=== PATIENT | male | born 1950 | race Caucasian/White ===

== ENCOUNTER 2017-08-14 13:01 | Emergency (ER) | payer MEDICARE ==
[~2017-08-14 13:01] MED LIST: BACT800T5 PO; CIAL5TAB PO; HYDR-2768 PO; LANSO15 PO; LISI-363 PO; LOVA40TA PO; METO25 PO
[2017-08-14 13:03] VITALS: BP 193/90; PULSE 82; RESP 16; TEMP 98.4; O2SAT 96
[2017-08-14] MEDS ORDERED: LOVA40TA PO (14:34)
[2017-08-14] MEDS ORDERED: LISI-515 PO (14:34)
[2017-08-14] MEDS ORDERED: CIAL5TAB PO (14:34)
[2017-08-14] MEDS ORDERED: PREV15CA20 PO (14:34)
[2017-08-14] MEDS ORDERED: METO25TA3 PO (14:34)
[2017-08-14] MEDS ORDERED: HYDR25TA5 PO (14:34)
--- NOTE | 2017-08-14 14:56 | PD ---
HPI Chief Complaint: Hip Injury Time Seen by Provider: 14:48 Travel History International Travel<30 days: No Contact w/Intl Traveler<30days: No Traveled to known affect area: No History of Present Illness HPI 66-year-old male presents for evaluation of bilateral right hip/thigh pain. He reports that 2 weeks ago a fence fell down. He was picking up with the sharp pain in the lateral right hip and thigh. Pain is sharp, worse with movement, specifically walking and flexion of the right hip. He was seen at an urgent care center on August 09 and he was prescribed diclofenac and prednisone. The pain has persisted which prompted evaluation. Denies any numbness, tingling, weakness. He has no other complaints at this time. PFSH Past Medical History Cancer: No Cardiovascular Problems: Yes Diabetes: Yes Patient Takes Glucophage: Yes Endocrine: No Gastrointestinal Disorders: Yes (PREVENTION OF REOCCURENCE OF GERD) Genitourinary: No Hepatitis: No Hiatal Hernia: No Hypertension: Yes Immune Disorder: No Medical other: Yes (ELEVATED CHOLESTEROL) Musculoskeletal: No Neurologic: No Psychiatric: No Reproductive: No Respiratory: No Thyroid Disease: No Past Surgical History Abdominal Surgery: Yes (CHOLECYSTECTOMY, APPENDECTOMY) AICD: No Cardiac Surgery: No Ear Surgery: No Endocrine Surgery: No Eye Surgery: No Genitourinary Surgery: No Gynecologic Surgery: No Joint Replacement: No Neurologic Surgery: No Oral Surgery: No Pacemaker: No Thoracic Surgery: No Other Surgery: Yes Social History Alcohol Use: No Tobacco Use: No Substance Use: No Allergies-Medications (Allergen,Severity, Reaction): Coded Allergies: *MDRO Multi-Drug Resistant Organism (Verified Adverse Reaction, Unknown, ) 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 Reported Meds & Prescriptions Reported Meds & Active Scripts Active Tylenol-Codeine #3 (Acetaminophen-Codeine) 300-30 mg Tab 1 Tab PO Q4H PRN Reported Cialis (Tadalafil) 5 Mg Tab 5 Mg PO DAILY Do not exceed 1 dose/day. Metoprolol Tartrate 25 Mg Tab 25 Mg PO BID Lovastatin 40 Mg Tab 40 Mg PO HS Lisinopril 20 Mg Tab 20 Mg PO DAILY Prevacid (Lansoprazole) 15 Mg Capdr 15 Mg PO DAILY Hydrochlorothiazide 25 Mg Tab 25 Mg PO DAILY Review of Systems Except as stated in HPI: all other systems reviewed are Neg Physical Exam Narrative GENERAL: Well-developed well-nourished male in no acute distress. He is ambulatory in the ED. SKIN: Warm and dry. CARDIOVASCULAR: Regular rate and rhythm. No murmur appreciated. RESPIRATORY: No accessory muscle use. Clear to auscultation. Breath sounds equal bilaterally. GASTROINTESTINAL: Abdomen soft, non-tender, nondistended. Hepatic and splenic margins not palpable. MUSCULOSKELETAL: No obvious deformities. There is no reproducible tenderness to palpation to the hips, pelvis, thighs. He has pain with abduction and and flexion of the right hip. NEUROLOGICAL: Awake and alert. No obvious cranial nerve deficits. Motor grossly within normal limits. Normal speech. Data Data Last Documented VS Vital Signs Date Time Temp Pulse Resp B/P (MAP) Pulse Ox O2 Delivery O2 Flow Rate FiO2 08/14/17 13:03 98.4 82 16 193/90 (124) 96 Orders Orders Hip, Uni(Ap&Lat) W Ap Pelvis (08/14/17 ) [facility] Medical Decision Making Medical Screen Exam Complete: Yes Emergency Medical Condition: Yes Medical Record Reviewed: Yes Differential Diagnosis Hip strain, iliotibial syndrome, avulsion fracture Narrative Course X-ray imaging of the pelvis and hip performed in triage revealed no acute abnormalities, some degenerative findings. His examination is consistent with a right hip strain. Recommended discontinuation of the prednisone. He'll be given Tylenol with codeine for breakthrough pain. He was noted to be hypertensive, he has a history of hypertension. Recommended keeping a journal of his blood pressure readings and the follow up with primary care physician. Diagnosis Primary Impression: Strain of right hip Qualified Codes: S76.011A - Strain of muscle, fascia and tendon of right hip, initial encounter Departure Forms: Tests/Procedures, Work Release Enter return to work date: Aug 17, 2017 Additional Instructions: Monitor your blood pressure on a regular basis. Quit taking prednisone. Continue diclofenac with meals. Do not codeine for breakthrough pain. Do not drive or drink alcohol when taking this medication. Follow-up with primary care physician. Return for any emergent medical conditions. Med/Other Pt SpecificInfo: Prescription(s) given Scripts Acetaminophen-Codeine (Tylenol-Codeine #3) 300-30 mg Tab 1 TAB PO Q4H Y for PAIN, #20 TAB 0 Refills Prov: Lindy Betancourt MD 11/6/17 Disposition: 01 DISCHARGE HOME Condition: Stable Aarti,Hernando P. PA Aug 14, 2017 14:56
--- NOTE | 2017-08-14 14:58 | RADRPT ---
EXAM DATE/TIME: 08/14/2017 13:31 [facility] COMPARISON: No previous studies available for comparison. INDICATIONS : Pain right hip x 1 week, difficulty with weight bearing. No known injury. MEDICAL HISTORY : None. SURGICAL HISTORY : None. ENCOUNTER: Initial ACUITY: 1 week PAIN SCORE: 10/10 LOCATION: Right hip. FINDINGS: Examination of the right hip was performed with AP Pelvis. Mild degenerative changes. No fracture. Fe moral neck intact. The acetabulum is grossly intact. CONCLUSION: Mild degenerative changes without fracture. Joey Vidal MD on August 14, 2017 at 14:56 Board Certified Radiologist. This report was verified electronically.
[2017-08-14] MEDS ORDERED: TYLETAB34 PO (15:00)
== END 2017-08-14 15:24 | disposition home or self-care (01) ==
LOC: NEPK 13:01
DX: S76.011A Strain of muscle, fascia and tendon of right hip, initial encounter (principal); I10 Essential (primary) hypertension; X50.9XXA Other and unspecified overexertion or strenuous movements or postures, initial encounter
CPT/HCPCS: 73502; 99283